=== PATIENT | male | born 1980 | race Caucasian/White ===

== ENCOUNTER 2018-05-16 10:10 | Outpatient (CLI) | payer OTHER | END 2018-05-16 23:59 | disposition home or self-care (01) | LOC: CVU 10:10 | PROVIDERS: ATTEND Internal Medicine Cardiovascular Disease | DX: I10 Essential (primary) hypertension (principal); R94.31 Abnormal electrocardiogram [ECG] [EKG] | CPT/HCPCS: 0399T; 93306 ==